=== PATIENT | female | born 2000 | race Caucasian/White ===

== ENCOUNTER 2022-11-05 12:49 | Emergency (ER) | payer BC, OTHER ==
[2022-11-05] MEDS: Sodium Chloride 0.9% 1,000 ML IV ONE (13:45)
[2022-11-05 13:55] LABS: BASOPHILS PERCENT AUTO 0.4 % (0.0-1.5); EOSINOPHILS PERCENT AUTO 0.6 % (0.0-7.0); HEMATOCRIT 39.8 % (36.0-46.0); HEMOGLOBIN 13.6 g/dL (12.0-16.0); LYMPHOCYTES ABSOLUTE AUTO 2.3 K/uL (0.6-2.4); LYMPHOCYTES PERCENT AUTO 33.9 % (16.0-40.0); MEAN CORPUSCULAR HEMOGLOBIN 29.1 pg (27.0-32.0); MEAN CORPUSCULAR HGB CONC 34.2 g/dL (31.0-37.0); MONOCYTES ABSOLUTE AUTO 0.4 K/uL (0.0-0.8); MONOCYTES PERCENT AUTO 6.1 % (0.0-15.0); NRBC ABSOLUTE 0 K/uL; PLATELET COUNT,PLT 223 K/uL (150-400); RED BLOOD CELL COUNT 4.68 M/uL (4.30-5.90); WHITE BLOOD CELL COUNT,WBC 6.85 K/uL (4.0-11.0)
[2022-11-05 13:57] LABS: APPEARANCE,URINE CLEAR; BILIRUBIN,URINE NEGATIVE (NEGATIVE); COLOR,URINE YELLOW; GLUCOSE,URINE NEGATIVE (NEGATIVE); KETONES,URINE NEGATIVE (NEGATIVE); LEUKOCYTE ESTERASE,URINE SMALL (NEGATIVE); NITRITE,URINE NEGATIVE (NEGATIVE); OCCULT BLOOD,URINE NEGATIVE (NEGATIVE); PH,URINE 5.5 (5.0-8.0); PROTEIN,URINE NEGATIVE (NEGATIVE); UROBILINOGEN,URINE 0.2 EU/dL (<2.0)
[2022-11-05 14:15] LABS: EPITHELIAL CELLS,URINE FEW (NONE-FEW); WBC,URINE 0-5 (0-5/HPF)
[2022-11-05 14:16] LABS: BACTERIA,URINE 1+ (NEGATIVE)
[2022-11-05 14:37] LABS: A/G RATIO 1.3 (0.9-1.6); ALBUMIN 4.4 g/dL (3.4-5.0); BILIRUBIN TOTAL 0.8 mg/dL (0.2-1.0); CALCIUM 9.1 mg/dL (8.5-10.1); CARBON DIOXIDE,CO2 25.3 mmol/L (21.0-32.0); CREATININE 0.8 mg/dL (0.6-1.0); EST CRCL DRUG DOSING (CG) 96.06 mL/min; POTASSIUM,K 3.6 mmol/L (3.5-5.1); PROTEIN TOTAL,TP 7.8 g/dL (6.4-8.2)
== END 2022-11-05 15:21 | disposition home or self-care (01) ==
LOC: MW.ED 12:49
DX: N30.00 Acute cystitis without hematuria (principal)
CPT/HCPCS: 36415; 80053; 81001; 83690; 84703; 85025; 87086; 96360; 99284; J7030; 99283